=== PATIENT | male | born 1990 | race American Indian/Alaskan Native ===

== ENCOUNTER 2017-01-10 18:53 | Emergency (ER) | payer OTHER ==
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
[2017-01-11] MEDS: MOTRIN PO ONE (02:05)
[2017-01-11] MEDS ORDERED: MOTRIN ONE (02:06)
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
[2017-01-11] MEDS: NORVASC PO ONE ×2 (04:15→04:16)
[2017-01-11] MEDS ORDERED: NORVASC ONE (04:15)
[2017-01-11 04:47] VITALS: BP 134/83
== END 2017-01-11 04:46 | disposition home or self-care (01) ==
LOC: ED 18:53
DX: M54.5 Low back pain (principal); Z98.890 Other specified postprocedural states; V89.2XXA Person injured in unspecified motor-vehicle accident, traffic, initial encounter; Y93.89 Activity, other specified; Y99.8 Other external cause status; Y92.410 Unspecified street and highway as the place of occurrence of the external cause
CPT/HCPCS: 72100; 72131; 99284